=== PATIENT | female | born 1965 | race African-American/Black ===

== ENCOUNTER 2017-05-11 21:00 | Inpatient (IN) | payer OTHER ==
[~2017-05-11] VITALS: Ht 165.1 cm; Wt 115.7 kg
--- NOTE | ~2017-05-11 | PA ---
Unit #: [id number] #: [id number] Patient: KEON LANDON [id number] [facility] [address] [place] [address] [id number] I MR#: [id number] NAME: KEON LANDON ROOM: P184 Age: 52 Sex: F Admission Date: 05/12/2017 : 1965 Date of Assessment: Attending Physician: Luis Fernando M.D. Admitting Physician: Luis Fernando M.D. Primary Care Physician: Generic Doctor Not In System PSYCHIATRIC ASSESSMENT DATE OF SERVICE 05/12/2017. IDENTIFYING DATA Ms. Landon is a 52-year-old single female, who is a resident of [place], [place], and was self-referred to the hospital on a voluntary basis. CHIEF COMPLAINT "I'm having suicidal thoughts." HISTORY OF PRESENT ILLNESS Ms. Landon is a 52-year-old female with history of mood disorder, who was self-referred to the hospital reporting suicidal ideation, stating that she is battling addiction and thinks that there is no way that she can beat it and stated that she feels that her family would be better off without her and stated that she would not care if she did not wake up the next day and stated that she has been smoking crack for the last 3 days and reports that she has not slept and that she has spent around 1500 dollars in the past 3 days and stated that she was living like an animal on the street and stated that she called a close friend to come and get her and that the friend dropped her off at the hospital. She reports that she has been using crack cocaine on and off since in the and stated that she has been able to maintain her sobriety for 6 years, but always seems to struggle at different points on her life and now reports increasing depression, anxiety, irritability, restlessness, feelings of hopelessness and helplessness, and suicidal ideations and stating that since coming down, she has had thoughts that her family is better off without her and she would not care if she did not wake up the next day and as such, recommendation for inpatient level of care for safety and stabilization was made and the patient was stepped up to the inpatient unit. SUBSTANCE ABUSE HISTORY The patient reports history of alcohol abuse in the past, but currently crack cocaine has been her drug of choice as she appears to be on a binge and has not slept in the last 3 days. PAST PSYCHIATRIC HISTORY The patient reports that she has an inpatient psychiatric and chemical dependency treatment in the past. Review of the medical records indicate currently she is not active in any treatment program, is not seeing a psychiatrist, and is not taking any psychotropic medications. Unit #: [id number] #: [id number] Patient: KEON LANDON PAST MEDICAL HISTORY Hypertension. ALLERGIES No known medication allergies. PERSONAL AND SOCIAL HISTORY A 52-year-old female, who reports that she is single, unemployed, and essentially homeless and has poor social support system. MENTAL STATUS EXAMINATION Middle-aged female, who was casually dressed with fair personal hygiene, appears to be in no acute distress or discomfort. She was awake and alert on interaction with intact orientation to time, place, and person. Her mood was anxious and depressed with a congruent affect. Her speech was slow and restricted in content. Her thought processes were disorganized with some looseness of associations and flight of ideas and suicidal ideations. Her insight and judgment remain significantly impaired. DIAGNOSTIC IMPRESSION Psychiatric: Major depressive disorder, recurrent, moderate, without psychotic features and cocaine dependence, moderate. Medical: Hypertension. Stressors: Moderate psychosocial stressors. TREATMENT PLAN 1. The patient has presented with a history of mood disorder and has been decompensating and will need inpatient hospitalization for safety and stabilization and detoxification. We will start her back on her home medications. We will recommend initiating a trial of antidepressant therapy. 2. Supportive therapy was provided to the patient. 3. Safe, structured, and nourishing environment will be provided. ESTIMATED LENGTH OF STAY 4 to 5 days. ABILITY TO HELP SELF Limited. WILLINGNESS TO HELP SELF The patient appears to be willing to help self. STRENGTHS 1. Communicative. 2. Cooperative. PROBLEMS 1. Chronic dysphoric symptoms. 2. Chronic chemical dependency. 3. Poor social support system. DISCHARGE CRITERIA This will be contingent upon the patient's ability to show resolution of her depression and anxiety and her ability to stay safe to herself, particularly after discharge from the hospital. Unit #: [id number] #: [id number] Patient: KEON LANDON Dictated by... Luis Fernando M.D. LOUISA/emily TD: 05/12/2017 17:55 JOB #: [id number] PSYCHIATRIC ASSESSMENT Page 1 of 1 X Luis Fernando MD PSYCHIATRIC ASSESSMENT
--- NOTE | ~2017-05-11 | HP ---
Unit #: [id number] #: [id number] Patient: KEON MARLOW [id number] [place] [address] [id number] I MR#: [id number] NAME: KEON MARLOW ROOM: P184 Age: 52 Sex: F Admission Date: 05/12/2017 : 1965 Attending Physician: Luis Fernando M.D. Admitting Physician: Luis Fernando M.D. Primary Care Physician: Generic Doctor Not In System HISTORY AND PHYSICAL HISTORY OF PRESENT ILLNESS Patient is a 52-year-old female admitted to [facility] on 05/12/2017 for suicidal ideations and crack cocaine use. PAST MEDICAL HISTORY 1. Obesity. 2. Hypertension. PAST SURGICAL HISTORY Patient denies. SOCIAL HISTORY She is a alarm field technician. She lives alone. She uses cocaine every day. FAMILY MEDICAL HISTORY Noncontributory. ALLERGIES No known drug allergies. CURRENT MEDICATIONS Patient is not on any home medications. REVIEW OF SYSTEMS CONSTITUTIONAL: No fever or chills. HEENT: Denies any sore throat, ear pain or runny nose. CARDIOVASCULAR: Denies chest pain, irregular heart rhythm or palpitations. CHEST: Denies shortness of breath or cough. No hemoptysis. GASTROINTESTINAL: Denies nausea, vomiting, diarrhea or chronic constipation. ENDOCRINE: Denies history of increased thirst or urination. No recent significant weight loss or gain. GENITOURINARY: Denies dysuria, frequency, or hematuria. SKIN: Denies any rashes. HEMATOLOGIC: Denies history of increased bleeding or bruising. MUSCULOSKELETAL: Denies any hot, swollen joints. No generalized muscle pain. NEUROLOGIC: Denies problems with vision or speech. No frequent, severe headaches. No numbness, tingling or weakness in any extremities. Denies loss of bladder or bowel control. PHYSICAL EXAM GENERAL: She is awake, alert and oriented in no acute distress. Unit #: [id number] #: [id number] Patient: KEON MARLOW VITAL SIGNS: Temperature 98.2, heart rate 05, respiration 18, blood pressure 145/80. HEIGHT: 5 foot 5. WEIGHT: 255 pounds. SKIN: Warm and dry without rash or lesion. HEENT: Normocephalic. TMs not viewed. Oral and nasal passages clear. Conjunctivae clear. PERRLA. EOMs intact. NECK: Supple without lymphadenopathy or thyromegaly. HEART: Regular rate and rhythm without murmur. LUNGS: Clear. ABDOMEN: Soft, nontender. : Not done. EXTREMITIES: No evidence of cyanosis, clubbing or edema. Moves all without focal deficit. NEUROLOGICAL: Grossly within normal limits. Cranial Nerves: II: Visual gan are intact. III, IV AND : Extraocular movements are intact. Pupils are equal, round and reactive to light. V: Facial sensation is grossly normal. VII: Facial movements and expression are normal. VIII: Auditory acuity grossly intact. IX, X: Uvula is midline. Phonation is normal. XI: Patient shrugs shoulders and turns head normally. XII: Tongue protrudes in the midline. Sensory and Motor Function: Sensory and motor sensation is grossly normal. Motor: moves all extremities well. IMPRESSION 1. Psychiatric admission. 2. Obesity. 3. Hypertension. RECOMMENDATIONS Psychiatric per psychiatrist. MEDICAL: No contraindication to participate in facility activities. MEDICAL PROGNOSIS Good. MEDICAL CONDITION Stable. Dictated by... Serge Griffin/radha TD: 05/13/2017 02:04 JOB #: [id number] Unit #: [id number] #: [id number] Patient: KEON MARLOW HISTORY AND PHYSICAL Page 1 of 1 X MARQUES FREDERICK APRN HISTORY AND PHYSICAL
--- NOTE | ~2017-05-11 | PN ---
Unit #: [id number] #: [id number] Patient: KEON LANDON [id number] [facility] [address] [place] [address] [id number] I MR#: [id number] NAME: KEON LANDON ROOM: 84 Age: 52 Sex: F Admission Date: 05/12/2017 : 1965 Attending Physician: Luis Fernando M.D. Admitting Physician: Luis Fernando M.D. Primary Care Physician: Shahnaz Doctor Not In System [facility] PROGRESS NOTES DATE 05/14/2017 DISCUSSION Ms. Landon is a 52-year-old female who was seen today and chart was reviewed and case was discussed with the staff. She has been anxious, withdrawn and rather seclusive to herself. Meanwhile, she has been cooperative with treatment recommendations and has been taking medications and tolerating them fairly well with no reported side effects. MENTAL STATUS EXAMINATION Middle-aged female who was casually dressed with fair personal hygiene and appears to be in no acute distress or discomfort. She was awake and alert on interaction with intact orientation. Her mood was anxious and depressed with congruent affect. Her speech is slow and restricted in content. She reports having suicidal ideation but denies any homicidal ideations. Her insight and judgement remains slightly impaired. TREATMENT PLAN 1. Will continue on current medications and treatment protocol. Will monitor her response to the medications and make further adjustments as needed. 2. Will continue to follow up. Dictated by... Sandeep Orozco/elisa TD: 05/14/2017 22:30 JOB #: [id number] Unit #: [id number] #: [id number] Patient: KEON LANDON PROGRESS NOTES Page 1 of 1 X Luis Fernando MD PROGRESS NOTE
--- NOTE | ~2017-05-11 | DS ---
Unit #: [id number] #: [id number] Patient: KEON LANDON [id number] [facility] [place] [address] [id number] I MR#: [id number] NAME: KEON LANDON ROOM: P184 Age: 52 Sex: F Admission Date: 05/12/2017 : 1965 Discharge Date: 05/16/2017 Attending Physician: Luis Fernando M.D. Primary Care Physician: Generic Doctor Not In System DISCHARGE SUMMARY IDENTIFYING DATA Ms. Landon is a 52-year-old female who is a resident of [place], [place] and was self-referred to the hospital on voluntary basis. HISTORY OF PRESENT ILLNESS Please see initial psychiatric evaluation. PAST PSYCHIATRIC HISTORY Please see initial psychiatric evaluation. PAST MEDICAL HISTORY Please see initial psychiatric evaluation. HOSPITAL COURSE The patient was admitted to the adult chemical dependency unit at [facility] and was oriented to the hospital environment. Routine p.r.n. medications were initiated and she was started back on her home medications and was closely monitored. She was taking the medications regularly and was tolerating them fairly well and able to show a decent therapeutic response and was willing to continue treatment on outpatient basis and as such it was decided that she will be discharged and will continue treatment on outpatient basis. DISCHARGE DIAGNOSES PSYCHIATRIC: 1. Major depressive disorder, recurrent, moderate, without psychotic features. 2. Cocaine dependence, moderate. MEDICAL: Hypertension. STRESSORS: Mild psychosocial stressors. DISCHARGE MEDICATIONS Wellbutrin XL 150 mg in the morning for depression. CONDITION AT DISCHARGE Stable. PROGNOSIS Fair. Unit #: [id number] #: [id number] Patient: KEON LANDON Dictated by... Sandeep Orozco/elisa TD: 05/16/2017 22:03 JOB #: [id number] DISCHARGE SUMMARY Page 1 of 1 X Luis Fernando MD DISCHARGE SUMMARY
--- NOTE | ~2017-05-11 | PN ---
Unit #: [id number] #: [id number] Patient: KEON LANDON [id number] [facility] [address] [place] [address] [id number] I MR#: [id number] NAME: KEON LANDON ROOM: P184 Age: 52 Sex: F Admission Date: 05/12/2017 : 1965 Attending Physician: Luis Fernando M.D. Admitting Physician: Luis Fernando M.D. Primary Care Physician: Shahnaz Doctor Not In System [facility] PROGRESS NOTES DATE May 13, 2017 DISCUSSION Ms. Landon is a 52-year-old female, who was seen today and chart was reviewed and the case was discussed with the staff. She has been anxious, withdrawn, and rather seclusive to herself. Meanwhile, she has been cooperative with the treatment recommendations and she has been taking the medications and tolerating them fairly well with no reported side effects. MENTAL STATUS EXAMINATION A middle-aged female, who was casually dressed with fair personal hygiene and appears to be in no acute distress or discomfort. The patient was awake and alert with impaired attention and concentration. Her mood is anxious with a congruent affect. Her speech is slow-directed. The patient denies any suicidal or homicidal ideations, and also denies any auditory or visual hallucinations. Her insight and judgment remain slightly impaired. TREATMENT PLAN 1. We will continue her on her current medications and treatment protocol, and will monitor her response to the medications, and make further adjustments as needed. 2. We will continue to followup. Dictated by... Sandeep Orozco/giacomo TD: 05/14/2017 05:07 JOB #: [id number] Unit #: [id number] #: [id number] Patient: KEON LANDON PROGRESS NOTES Page 1 of 1 X Luis Fernando MD PROGRESS NOTE
--- NOTE | ~2017-05-11 | PN ---
Unit #: [id number] #: [id number] Patient: KEON LANDON [id number] [facility] [address] [place] [address] [id number] I MR#: [id number] NAME: KEON LANDON ROOM: P184 Age: 52 Sex: F Admission Date: 05/12/2017 : 1965 Attending Physician: Luis Fernando M.D. Admitting Physician: Luis Fernando M.D. Primary Care Physician: Shahnaz Doctor Not In System [facility] PROGRESS NOTES DATE May 15, 2017 DISCUSSION Ms. Landon is a 52-year-old female, with mood disorder, and cocaine dependence, who was seen today and chart was reviewed and the case was discussed with the staff. She has been anxious, withdrawn, and rather seclusive to herself but reports some improvement in her depressive symptoms. Meanwhile, she has been cooperative with the treatment recommendations and she has been taking the medications and tolerating them fairly well with no reported side effects. MENTAL STATUS EXAMINATION Middle-aged female, who was casually dressed with fair personal hygiene and appears to be in no acute distress or discomfort. The patient was awake and alert on interaction with intact orientation. Her mood was anxious and depressed with a congruent affect. Her speech is slow and goal-directed. The patient denies any current suicidal or homicidal ideations, and also denies any auditory or visual hallucinations. Her insight and judgment remain slightly impaired. TREATMENT PLAN 1. We will continue her on her current medications and treatment protocol, and will monitor her response to the medications, and make further adjustments as needed. 2. We will continue to followup. Dictated by... Sandeep Orozco/giacomo TD: 05/15/2017 11:15 JOB #: [id number] Unit #: [id number] #: [id number] Patient: KEON LANDON PROGRESS NOTES Page 1 of 1 X Luis Fernando MD PROGRESS NOTE
[2017-05-13 09:44] LABS: BASOPHIL% 0.3 % (0-2.5); EOSINOPHIL# 0.1 X10e3 (0-0.7); EOSINOPHIL% 1.4 % (0.0-7.0); HEMATOCRIT 40.7 % (35.0-45.0); HEMOGLOBIN 13.3 gm/dL (12.0-16.0); LYMPHOCYTE# 2.8 X10e3 (1.0-3.5); LYMPHOCYTE% 40.7 % (17.0-45.0); MEAN CELL VOLUME 92.8 FL (83-96); MEAN CORPUSCULAR HEMOGLOBIN 30.4 PG (28-34); MEAN CORPUSCULAR HGB CONC 32.7 g/dL (30-36); MEAN PLATELET VOLUME 9.1 FL (6.5-11.5); MONOCYTE# 0.7 X10e3 (0-1.0); MONOCYTE% 9.6 % (3.0-12.0); NEUTROPHIL# 3.3 X10e3 (1.5-7.1); PLATELET COUNT 245 X10e3 (140-420); RED BLOOD COUNT 4.38 X10e (3.90-5.30); WHITE BLOOD COUNT 6.9 X10e3 (4.0-10.5)
[2017-05-13 09:48] LABS: DIFF IND NO
[2017-05-13 10:05] LABS: ALBUMIN SERUM 3.7 g/dL (3.5-5.0); BILIRUBIN,TOTAL 0.9 mg/dL (0.2-2.0); BUN/CREATININE RATIO 18.57; CALCIUM SERUM 9.2 mg/dL (8.4-10.2); CREATININE SERUM 0.7 mg/dL (0.6-1.4); GLOM FILT RATE Estimated 116.3 mL/min (>60); POTASSIUM 4.4 mmol/L (3.5-5.1); PROTEIN TOTAL SERUM 7.1 g/dL (6.0-8.3)
[2017-05-14 10:10] LABS: URINE APPEARANCE TURBID; URINE BILIRUBIN NEG (NEG); URINE BLOOD NEG (NEG); URINE COLOR YELLOW; URINE GLUCOSE NEG (NEG); URINE KETONE TRACE (NEG); URINE LEUKOCYTE ESTERASE 2+ (NEG); URINE NITRATE NEG (NEG); URINE PH 5.5 (5-8); URINE PROTEIN NEG (NEG); URINE SPECIFIC GRAVITY 1.029 (1.003-1.035)
[2017-05-14 10:12] LABS: URINE BACTERIA AUWI 2+ (NEGATIVE); URINE SQUAMOUS EPITHELIAL CELL FEW /[HPF]
[2017-05-14 10:57] LABS: URBCS1 AUWI 0-2 /[HPF] (0-2)
[2017-05-14 10:58] LABS: URINE AMORPHOUS SEDIMENT AMORP URATES; URINE CRYSTALS CALCIUM OXALATE /[HPF]
[2017-05-14 11:00] LABS: URINE MUCUS PRESENT
[2017-05-14 11:48] LABS: AMPHETAMINE NEG (NEG); BARBITURATES NEG (NEG); BENZODIAZEPINES NEG (NEG); COCAINE POS (NEG); MARIJUANA NEG (NEG); OPIATES NEG (NEG); TRICYCLIC ANTIDEPRESSANTS NEG (NEG); U METHADONE NEG (NEG)
== END 2017-05-16 09:05 | DRG 885 ==
LOC: P1E 05-12 00:52
PROVIDERS: Psychiatry & Neurology Psychiatry
PROC: HZ2ZZZZ Detoxification Services for Substance Abuse Treatment (ICD-10-PCS; principal; 2017-05-12)
DX: F33.1 Major depressive disorder, recurrent, moderate (principal); F14.20 Cocaine dependence, uncomplicated; I10 Essential (primary) hypertension
CPT/HCPCS: 80053; 80307; 81003; 84703; 85025